=== PATIENT | male | born 1985 | race Caucasian/White ===

== ENCOUNTER 2017-02-04 23:59 | Emergency (ER) | payer BC ==
[2017-02-05] MEDS ORDERED: DEMEROL INJ ONE (00:10)
[2017-02-05] MEDS ORDERED: ZOFRAN INJ 4 MG VIAL ONE (00:10)
[2017-02-05] MEDS ORDERED: NS 1000 ML 1,000 ML IV ONE (00:23)
[2017-02-05] MEDS ORDERED: ZOFRAN INJ 4 MG VIAL IVP ONE (00:23)
[2017-02-05] MEDS ORDERED: DEMEROL INJ IVP ONE (00:23)
[2017-02-05 00:24] VITALS: BMI 33.0
--- NOTE | 2017-02-05 00:34 | DR.ABDMALE ---
HPI - Time seen Time seen: 00:10 - HPI comment HPI Comment: PAIN SIMILAR TO PREVIOUS EPISODES. NO FEVER. SAW SPECIALIST IN [place] FOR THE GALL STONE. TODAY PAIN STARTED AND IS MROE SEVERE AND LASTING FOR EVER. NAUSEATED. - Complaint Chief Complaint Doctors Comments: EPIGASTRIC PAIN WITH NAUSEA TIMES FEW HOURS. - Reviewed Nurses Notes Review: Yes - Mode of arrival Mode of Arrival: Ambulatory - Timing Came on: Suddenly - Duration Duration: Constant Duration: Hours - Location Location: Epigastric - Severity Severity: Moderate - Quality Quality: Burning, Sharp - Context History of: Similar pain (dx) - Modifying factors Worsening Factors: Nothing Improving Factors: Nothing - Associated signs and symptoms Associated Signs and Symptoms: Nausea, Vomiting ROS - Review of Systems Constitutional: No Symptoms Reported. negative: Chills, Fever Eyes: No Symptoms Reported. negative: Eye Pain, Discharge ENTM: No Symptoms Reported. negative: Ear Pain, Nose Discharge, Nose Congestion , Throat Pain Respiratoy: No Symptoms Reported. negative: Productive Cough, Non-Productive Cough, Short of Breath, Wheezing, Hemoptysis Cardiovascular: No Symptoms Reported. negative: Chest Pain, Edema Gastrointestinal/Abdominal: Abdominal Pain, Nausea Genitourinary: No Symptoms Reported Neurological: No Symptoms Reported Musculoskeletal: No Symptoms Reported Integumentary: No Symptoms Reported Hematologic/Lymphatic: No Symptoms Reported Endocrine: No Symptoms Reported All Other Systems: Reviewed and Negative PE - Vital Signs Vital Signs: Pulse Pulse Resp BP BP Pulse Ox 02/05/17 02:20 73 16 149/74 97 02/05/17 02:18 95 02/05/17 02:00 150/73 02/05/17 01:55 16 98 02/05/17 01:47 16 87 L 02/05/17 01:46 16 86 L 02/05/17 01:45 16 87 L 02/05/17 01:40 56 L 144/74 95 02/05/17 01:20 55 L 179/84 97 02/05/17 00:40 50 L 171/84 100 02/05/17 00:16 73 24 184/93 100 - General Limitations: No Limitations General Appearance: Alert - Head Head Exam: Normal Inspection - Eyes Eye exam: Normal Appearance - ENT ENT Exam: Normal External Ear Exam - Neck Neck Exam: Trachea Midline - Chest Chest Inspection: Symmetric Chest Wall Rise - Respiratory Respiratory Exam: Normal Lung Sounds Bilat Respiratory Exam: Bilateral Clear to Auscultation - Cardiovascular Cardiovascular Exam: Regular Rate, Normal Rhythm, Normal Heart Sounds - Abdominal Exam Abdominal Exam: Normal Bowel Sounds, Soft, Tenderness Abdominal Tenderness: Epigastrium, Moderate - Rectal Rectal Exam: Deferred - Back Back Exam: Normal Inspection - Extremeties Extremities Exam: Normal Inspection - Exam: Male: Deferred - Neurologic Neurological Exam: Alert, Oriented X3 - Psychiatric Psychiatric Exam: Normal Affect, Normal Mood - Skin Skin Exam: Normal Color MDM - Additional Information Obtained From Additional information provided by: Family - Differential Diagnosis Differential Diagnosis: Bowel Obstruction, Cholcystitis, Cholelethiasis, Diverticular disease, Gastritus/PUD, Gastroenteritis, Pancreatitis, Urinary tract infection, Urolithiasis Course - Treatment Treatment: SEE ORDERS. IV PAIN MED IN ED. - Reevaluation 1st: Improved - Education/Counseling Education/Counseling: Patient, Family, Education Educated On: Diagnosis, Needs for Follow Up ROR - Labs Reviewed Laboratory Results Reviewed?: Yes Result Diagrams: 02/05/17 00:05 02/05/17 00:05 Laboratory: WBC 11.7 X10^3/uL (3.6-10.0) H 02/05/17 00:05 RBC 5.10 X10^6/uL (4.7-6.0) 02/05/17 00:05 Hgb 15.0 g/dL (13.5-18.0) 02/05/17 00:05 Hct 44.0 % (42.0-54.0) 02/05/17 00:05 MCV 86.4 fL (80.0-100.0) 02/05/17 00:05 MCH 29.3 pg (27.0-34.0) 02/05/17 00:05 MCHC 34.0 g/dL (33.0-35.0) 02/05/17 00:05 RDW 13.3 % (11.6-16.5) 02/05/17 00:05 Plt Count 257 X10^3/uL (150.0-450.0) 02/05/17 00:05 MPV 8.0 fL (7.4-11.0) 02/05/17 00:05 Neut % 74.0 % (42.0-75.0) 02/05/17 00:05 Lymph % 14.7 % (21.0-51.0) L 02/05/17 00:05 Crisp % 9.5 % (0.0-13.0) 02/05/17 00:05 Eos % 1.4 % (0.9-2.9) 02/05/17 00:05 Baso % 0.4 % (0.2-1.0) 02/05/17 00:05 Neut # 8.7 x10^3/uL (2.2-4.8) H 02/05/17 00:05 Lymph # 1.7 X10^3/uL (1.3-2.9) 02/05/17 00:05 Crisp # 1.1 x10^3/uL (0.3-0.8) H 02/05/17 00:05 Eos # 0.2 x10^3/uL (0.0-0.2) 02/05/17 00:05 Baso # 0.0 X10^3/uL (0.0-0.1) 02/05/17 00:05 Absolute Nucleated RBC 0.1 /100WBC 02/05/17 00:05 Sodium 138 mmol/L (136-145) 02/05/17 00:05 Corrected Sodium 138 mmol/L (136-145) 02/05/17 00:05 Potassium 3.7 mmol/L (3.5-5.1) 02/05/17 00:05 Chloride 101 mmol/L (98-107) 02/05/17 00:05 Carbon Dioxide 24.2 mmol/L (21-32) 02/05/17 00:05 BUN 15 mg/dL (7-18) 02/05/17 00:05 Creatinine 1.11 mg/dL (0.70-1.30) 02/05/17 00:05 Est GFR (MDRD) Af Amer > 60 (>60) 02/05/17 00:05 Est GFR (MDRD) Non-Af > 60 (>60) 02/05/17 00:05 Glucose 114 mg/dL (65-99) H 02/05/17 00:05 Calcium 9.8 mg/dL (8.5-10.1) 02/05/17 00:05 Corrected Calcium TNP 02/05/17 00:05 Total Bilirubin 0.40 mg/dL (0.2-1.0) 02/05/17 00:05 AST 41 Units/L (15-37) H 02/05/17 00:05 ALT 89 Units/L (12-78) H 02/05/17 00:05 Alkaline Phosphatase 90 Units/L (46-116) 02/05/17 00:05 Total Protein 8.1 g/dL (6.4-8.2) 02/05/17 00:05 Albumin 4.2 g/dL (3.4-5.0) 02/05/17 00:05 Globulin 3.9 g/dL (2.5-4.5) 02/05/17 00:05 Albumin/Globulin Ratio 1.1 Ratio (1.1-2.1) 02/05/17 00:05 Amylase 64 Units/L (25-115) 02/05/17 00:05 Lipase 198 Units/L (73-393) 02/05/17 00:05 - XRAY XRAY Interpreted by: Radiologist XRAY Findings: REPORT DISCUSS WITH PATIENT, - EKG Rhythm: NSR (EKG NOTED) - Diagnosis Discharge Problem: Abdominal pain, Gallbladder colic - Discharge Plan Condition: Stable - Follow ups/Referrals Follow ups/Referrals: NFD,None [Primary Care Provider] - 3 days - Instructions Instructions: Cholelithiasis, Kidney Stones, [id number], Abdominal Pain, Adult, [id number] Additional Instructions: RETURN TO ED IF WORSE. SEE YOUR THIS AM.
[2017-02-05 00:36] LABS: BASOPHILS % (AUTO) 0.4 % (0.2-1.0); EOSINOPHILS # (AUTO) 0.2 x10^3/uL (0.0-0.2); EOSINOPHILS % (AUTO) 1.4 % (0.9-2.9); LYMPHOCYTES # (AUTO) 1.7 X10^3/uL (1.3-2.9); LYMPHOCYTES % (AUTO) 14.7 % (21.0-51.0); MEAN CORPUSCULAR HEMOGLOBIN 29.3 pg (27.0-34.0); MEAN CORPUSCULAR VOLUME 86.4 fL (80.0-100.0); MONOCYTES # (AUTO) 1.1 x10^3/uL (0.3-0.8); MONOCYTES % (AUTO) 9.5 % (0.0-13.0); NEUTROPHILS # (AUTO) 8.7 x10^3/uL (2.2-4.8); PLATELET COUNT 257 X10^3/uL (150.0-450.0); RED CELL DISTRIBUTION WIDTH 13.3 % (11.6-16.5); WHITE BLOOD COUNT 11.7 X10^3/uL (3.6-10.0)
[2017-02-05] MEDS ORDERED: NS 1000 ML 1,000 ML ONE (00:36)
[2017-02-05 00:44] LABS: ALANINE AMINOTRANSFERASE 89 Units/L (12-78); ALBUMIN 4.2 g/dL (3.4-5.0); ALKALINE PHOSPHATASE 90 Units/L (46-116); AMYLASE 64 Units/L (25-115); ASPARTATE AMINO TRANSFERASE 41 Units/L (15-37); BLOOD UREA NITROGEN 15 mg/dL (7-18); CALCIUM 9.8 mg/dL (8.5-10.1); CARBON DIOXIDE 24.2 mmol/L (21-32); CHLORIDE 101 mmol/L (98-107); COR NA(FOR HYPERGLY) 138 mmol/L (136-145); CREATININE 1.11 mg/dL (0.70-1.30); LIPASE 198 Units/L (73-393); SODIUM 138 mmol/L (136-145); TOTAL PROTEIN 8.1 g/dL (6.4-8.2); eGFR BLACK RACES > 60 (>60); eGFR NON BLACK RACES > 60 (>60)
[2017-02-05] MEDS ORDERED: DILAUDID INJ IVP ONE (01:30)
[2017-02-05] MEDS ORDERED: DILAUDID INJ ONE (01:31)
--- NOTE | 2017-02-05 01:59 | CT ---
CT abdomen and pelvis without contrast Indication: Abdominal pain, history of gallstones Technique: Helical CT images of the abdomen and pelvis were obtained without IV contrast. Reformatted images in the coronal and sagittal planes were also generated for review. Comparison: None Findings: Lung bases are clear. No aggressive osseous lesions are identified. Within the limits of a noncontrast exam, the liver, spleen, pancreas and adrenals are unremarkable. T here are multiple small gallstones within the nondistended gallbladder. No gross biliary dilatation i s seen. There is a punctate, nonobstructing stone within the upper right kidney. No additional radiop aque urinary tract calculi are otherwise identified and there is no left or right hydroureteronephros is. The GI tract, including the appendix is normal. The IVC, abdominal aorta, urinary bladder and prostat e are normal. No free air, free fluid or lymphadenopathy is identified. Impression: No acute abnormality to explain patient's symptoms. Cholelithiasis without CT evidence of acute cholecystitis. Right nephrolithiasis. Reported By:
[2017-02-05 02:24] VITALS: BP 149/74
== END 2017-02-05 02:44 | disposition home or self-care (01) ==
LOC: ER 23:59
DX: K80.20 Calculus of gallbladder without cholecystitis without obstruction (principal); R10.13 Epigastric pain; N20.0 Calculus of kidney
CPT/HCPCS: 36415; 74176; 80053; 82150; 83690; 85025; 93005; 93010; 96365; 96367; 96374; 96375; 99283; A4222; J1170; J2175; J2405